=== PATIENT | male | born 1995 | race Caucasian/White ===

== ENCOUNTER 2019-01-02 10:38 | Emergency (ER) | payer OTHER ==
[~2019-01-02] VITALS: Ht 172.7 cm; Wt 122.5 kg
[~2019-01-02 10:38] MED LIST: ABILIFY 2 MG2 M1; AMOXICILLIN 50500 MG PO; NOHOMEMEDICATIONS; PAXIL10 MG PO; PROPRANOLOL 1010 MG PO; PROZAC 20 MG20 M1 PO; PROZAC40 MG; TRAZODONE HCL100 MG PO; VALIUM5 MG PO; VISTARIL 25 MG25 M1 PO; XANAX 0.25 MG0.25 MG PO; ZANTAC 150MG T150 MG PO
[2019-01-02] MEDS ORDERED: HYDROCODONE-AP1 EAC6 PO (12:02)
[2019-01-02 12:13] VITALS: BP 157/95
== END 2019-01-02 12:13 | disposition home or self-care (01) ==
LOC: M.ERS 10:38
DX: S46.092A Other injury of muscle(s) and tendon(s) of the rotator cuff of left shoulder, initial encounter (principal); F41.9 Anxiety disorder, unspecified; F32.9 Major depressive disorder, single episode, unspecified; F17.210 Nicotine dependence, cigarettes, uncomplicated; W18.39XA Other fall on same level, initial encounter; Y93.89 Activity, other specified; Y92.89 Other specified places as the place of occurrence of the external cause; Y99.8 Other external cause status

== ENCOUNTER 2019-01-09 11:45 | Emergency (ER) | payer OTHER ==
[~2019-01-09] VITALS: Ht 172.7 cm; Wt 120.2 kg
[~2019-01-09 11:45] MED LIST changes: +HYDROCODONE-AP1 EAC6 PO
[2019-01-09 12:04] VITALS: BP 159/102
== END 2019-01-09 12:18 | disposition home or self-care (01) ==
LOC: M.ERS 11:45
DX: M25.512 Pain in left shoulder (principal); F17.210 Nicotine dependence, cigarettes, uncomplicated; F41.9 Anxiety disorder, unspecified; F32.9 Major depressive disorder, single episode, unspecified; G47.00 Insomnia, unspecified; F42.9 Obsessive-compulsive disorder, unspecified